=== PATIENT | female | born 1975 | race Two or more races ===

== ENCOUNTER 2023-09-19 18:26 | Emergency (ER) | payer OTHER ==
[~2023-09-19] VITALS: Ht 160 cm; Wt 96.2 kg
[~2023-09-19 18:26] MED LIST: YAZ 28 TABLET1 TAB PO
[2023-09-19] MEDS ORDERED: DICLOFENAC SODI75 MG PO (21:15)
[2023-09-19] MEDS ORDERED: NORFLEX100MG PO (21:15)
== END 2023-09-19 21:31 | disposition home or self-care (01) ==
LOC: ER 18:26
DX: S09.8XXA Other specified injuries of head, initial encounter (principal); S19.9XXA Unspecified injury of neck, initial encounter; S39.82XA Other specified injuries of lower back, initial encounter; V49.9XXA Car occupant (driver) (passenger) injured in unspecified traffic accident, initial encounter; Y93.89 Activity, other specified; Y92.89 Other specified places as the place of occurrence of the external cause; Y99.8 Other external cause status